=== PATIENT | female | born 1955 | race Caucasian/White ===

== ENCOUNTER 2016-09-11 16:33 | Inpatient (IN) | payer OTHER ==
--- NOTE | 2016-09-11 16:41 | EDPHY ---
H & P Time Seen by Provider: 09/11/16 16:41 HPI/ROS: Portions of this note were transcribed by a electromedical equipment technician. I personally performed the history, physical exam, and medical decision-making; and confirmed the accuracy of the information in the transcribed note. CHIEF COMPLAINT: shortness of breath and headache. HISTORY OF PRESENT ILLNESS: Patient is a 60 y/o female with a history of CHF, complaining of shortness of breath and headache. History obtained from daughter and patient. Symptoms of shortness of breath and headache started on 09/09 with all day oxygen treatment. Patient was off during the day on 09/10 and then was. Levels were measured at 83-84% at rest. Did not need oxygen last night but woke up short of breath with headache and needed oxygen supplement. Associated bilateral increased leg swelling. Worse with exertion or lying flat. Patient believes she has gained roughly 20 lbs recently since discharge. Recent increase in Lasix to 80mg 3 x daily. Recently realized that Carvedilol dosage was half the dose she was initially taking. Denies nausea, vomiting, fever, rash, chest pain, syncopal episode, cough REVIEW OF SYSTEMS: Eye: no change in vision ENT: no sore throat Cardiac: no chest pain or syncope Pulmonary: no cough or SOB Abdomen: no vomiting, diarrhea, abdominal pain Musculoskeletal: no back pain Skin: increased redness and swelling to lower extremity bilaterally Neuro: headache in the morning Constitutional: no fever : no urinary symptoms A comprehensive 10 point review of systems is otherwise negative aside from elements mentioned in the history of present illness. PAST MEDICAL HISTORY: 1. Discharge summary from 08/23 for inferolateral myocardial infarct 2. hypertension 3. chronic kidney disease 4. chronic lower extremity edema 5. Diastolic dysfunction Social history: Daughter at bedside, nonsmoker General Appearance: Alert and conversant, cooperative. Hypertensive and hypoxic at 88% in triage Eyes: No scleral icterus. ENT, Mouth: Normal mucous membranes. Respiratory: Crackles ausculated in bilateral bases, abdominal retractions, Cardiovascular: Regular rate and rhythm. Gastrointestinal: Abdomen is soft and non tender. Neurological: Alert and oriented x3. Normally conversant. Face symmetric, normal movement and sensation in all extremities. Skin: Warm and dry, no rashes. bilateral 3+ pedal edema with venous status changes Musculoskeletal: No peripheral edema and no joint swelling. Psychiatric: Not agitated. Emergency Department course/MDM: Patient evaluation: Patient arrives complaining of shortness of breath and headache for the past 3 days with recent history of CHF. Plan: IV, labs, chest x-ray and consult with Dr. Elizalde, senior db2 systems programmer. 1737: X-ray reviewed and suggests congestive heart failure. I have ordered 80mg IV Lasix, Nitroglycerin drip, and 650mg PO Tylenol for Nitro-induced headache. 1746 Reevaluation: I discussed results of chest x-ray and indication of congestive heart failure with plan for Lasix, nitroglycerin. 180: Patient's troponin is elevated to 0.048. 1913: I spoke with Dr. Los Gudino with [facility] regarding the patient's evaluation in the ER and plan for admission. Smoking Status: Former smoker Constitutional: Initial Vital Signs Temperature (C) 37.2 C 09/11/16 16:35 Heart Rate 86 09/11/16 16:35 Respiratory Rate 22 H 09/11/16 16:35 Blood Pressure 202/98 H 09/11/16 16:35 O2 Sat (%) 88 L 09/11/16 16:35 O2 Delivery Mode Nasal Cannula O2 (L/minute) 4 Allergies/Adverse Reactions: amoxicillin [Amoxicillin] Allergy (Verified 07/27/13 14:54) lisinopril Allergy (Verified 08/22/16 11:37) losartan Allergy (Verified 08/22/16 11:37) Sulfa (Sulfonamide Antibiotics) Allergy (Verified 07/27/13 14:54) Home Medications: Medication Instructions Recorded Allopurinol [Allopurinol 300 MG 300 mg PO DAILY 08/22/16 (RX)] Aspirin EC [Aspirin EC 81 mg (*)] 81 mg PO DAILY 08/22/16 Carbamazepine 400 mg PO HS 08/22/16 FLUoxetine [Prozac 20 MG (*)] 20 mg PO DAILY 08/22/16 Insulin NPH Human [humULIN N 100 40 units SC DAILY@09 08/22/16 UNITS/ML (*)] Insulin NPH Human [humULIN N 100 40 units SC DAILY@18 08/22/16 UNITS/ML (*)] Insulin Regular Human [Humulin R 35 unit SC BIDMEAL 08/22/16 100 units/ml (*)] Carvedilol [Coreg (*)] 12.5 mg PO BIDMEAL #60 tab 08/25/16 amLODIPine BESYLATE [Norvasc 5 mg 5 mg PO DAILY #30 tab 08/25/16 (*)] Furosemide [Lasix 40 MG (*)] 80 mg PO TID 09/11/16 Lovastatin 40 mg PO DAILY 09/11/16 Spironolactone [Aldactone 50 MG 50 mg PO BID 09/11/16 (RX)] Medical Decision Making - Diagnostics EKG Interpretation: The 12 lead EKG was interpreted by myself. Normal sinus rhythm, rate 85. See hard copy and/or "tracemaster" electronic copy for interpretation. Imaging: X-ray:Chest x-ray was obtained. I viewed the images myself on the PACS system. My interpretation of the images is: congestive heart failure. The radiologist interpretation is pending at this time. I discussed the x-ray findings with the patient. Differential Diagnosis: Differential diagnosis considered for shortness of breath including but not limited to pulmonary infectious process, COPD, asthma, pulmonary embolus and congestive heart failure. Consult/Admit Bed Type: [facility] will admit. Critical Care Time: Critical care time spent by me, Dr. Feliz, exclusively with the care of this patient was 30 minutes, exclusive of PA or CHEMICAL PLANT WORKER time and exclusive of separate procedures. The organ system at risk was cardiovascular and I ordered IV nitroglycerin, IV Lasix 80 mg, oral acetaminophen, supplemental oxygen, discussion with hospitalist physician and senior db2 systems programmer; to stabilize the patient and prevent worsening of the patient's condition. - Data Points Laboratory Results: Laboratory Results 09/11/16 17:10 09/11/16 17:10 09/11/16 17:10 WBC 8.77 10^3/uL (3.80-9.50) RBC 3.57 L 10^6/uL (4.18-5.33) Hgb 11.7 L g/dL (12.6-16.3) Hct 35.7 L % (38.0-47.0) MCV 100.0 H fL (81.5-99.8) MCH 32.8 pg (27.9-34.1) MCHC 32.8 g/dL (32.4-36.7) RDW 13.7 % (11.5-15.2) Plt Count 218 10^3/uL (150-400) MPV 9.4 fL (8.7-11.7) Neut % (Auto) 81.8 H % (39.3-74.2) Lymph % (Auto) 8.0 L % (15.0-45.0) Love % (Auto) 8.7 % (4.5-13.0) Eos % (Auto) 0.6 % (0.6-7.6) Baso % (Auto) 0.2 L % (0.3-1.7) Nucleat RBC Rel Count 0.0 % (0.0-0.2) Absolute Neuts (auto) 7.18 H 10^3/uL (1.70-6.50) Absolute Lymphs (auto) 0.70 L 10^3/uL (1.00-3.00) Absolute Monos (auto) 0.76 10^3/uL (0.30-0.80) Absolute Eos (auto) 0.05 10^3/uL (0.03-0.40) Absolute Basos (auto) 0.02 10^3/uL (0.02-0.10) Absolute Nucleated RBC 0.00 10^3/uL (0-0.01) Immature Gran % 0.7 % (0.0-1.1) Immature Gran # 0.06 10^3/uL (0.00-0.10) Sodium 140 mEq/L (134-144) Potassium 3.7 mEq/L (3.5-5.2) Chloride 98 mEq/L (97-110) Carbon Dioxide 30 mEq/l (22-31) Anion Gap 12 mEq/L (8-16) BUN 42 H mg/dL (7-23) Creatinine 1.5 H mg/dL (0.6-1.0) Estimated GFR 35 Glucose 158 H mg/dL (70-100) Calcium 9.7 mg/dL (8.5-10.4) Troponin I 0.048 H ng/mL (0-0.034) NT-Pro-B Natriuret Pep 6280 H pg/mL (0-125) Medications Given: Discontinued Medications Acetaminophen (Tylenol) 650 mg PO EDNOW ONE Stop: 09/11/16 17:41 Last Admin: 09/11/16 18:05 Dose: 650 mg Furosemide (Lasix Injection) 80 mg IVP EDNOW ONE Stop: 09/11/16 17:40 Last Admin: 09/11/16 18:05 Dose: 80 mg Nitroglycerin/Dextrose (Nitroglycerin 200 Mcg/Ml (Premix)) 250 mls @ 0 mls/hr IV EDNOW ONE; Titrate PRN Reason: Protocol Stop: 09/11/16 17:41 Last Admin: 09/11/16 18:10 Dose: 250 mls Departure - Departure Disposition: [facility] Inpatient Acute Clinical Impression: Congestive heart failure (CHF) Qualifiers: Congestive heart failure type: diastolic Congestive heart failure chronicity: acute on chronic Qualifier Code: (I50.33) Acute on chronic diastolic (congestive ) heart failure Condition: Serious Report Scribed for: Rojas Feliz Report Scribed by: Sadia Whitaker Date of Report: 09/11/16 Time of Report: 16:41
--- NOTE | 2016-09-11 17:05 | CPEKG ---
Heart Rate: 85 RR Interval: 706 P-R Interval: 152 QRSD Interval: 82 QT Interval: 388 QTC Interval: 462 P [facility]: 45 QRS [facility]: 5 T Wave [facility]: 46 EKG Severity - NORMAL ECG - EKG Impression: SINUS RHYTHM Electronically Signed By: Rojas Feliz 11-Sep-2016 17:57:53
[2016-09-11 17:23] LABS: % IMMATURE GRANULYOCYTES 0.7 % (0.0-1.1); ABSOLUTE IMMATURE GRANULOCYTES 0.06 10^3/uL (0.00-0.10); ADD DIFF? NO; ADD MORPH? NO; ADD SCAN? NO; ATYPICAL LYMPHOCYTE FLAG 0 (0-99); FRAGMENT RBC FLAG 0 (0-99); HEMATOCRIT 35.7 % (38.0-47.0); HEMOGLOBIN 11.7 g/dL (12.6-16.3); LEFT SHIFT FLG 0 (0-99); LIPEMIA HEMOLYSIS FLAG 80 (0-99); MEAN CELL HEMOGLOBIN 32.8 pg (27.9-34.1); MEAN CELL HEMOGLOBIN CONCENTR. 32.8 g/dL (32.4-36.7); MEAN PLATELET VOLUME 9.4 fL (8.7-11.7); PLATELET CLUMPS FLAG 0 (0-99); PLATELET COUNT 218 10^3/uL (150-400); RED BLOOD CELL COUNT 3.57 10^6/uL (4.18-5.33); RED CELL DISTRIBUTION WIDTH 13.7 % (11.5-15.2)
[2016-09-11] MEDS ORDERED: FUROSEMIDE 40 MG/4 ML VIAL IVP ONE (17:39)
[2016-09-11] MEDS ORDERED: NITROGLYCERIN/DEXTROSE 250 ML IV ONE (17:40)
[2016-09-11] MEDS ORDERED: ACETAMINOPHEN 325 MG TAB PO ONE (17:40)
[2016-09-11 17:44] LABS: ANION GAP 12 mEq/L (8-16); CALCIUM 9.7 mg/dL (8.5-10.4); CARBON DIOXIDE 30 mEq/l (22-31); CHLORIDE 98 mEq/L (97-110); CREATININE 1.5 mg/dL (0.6-1.0); GLOMERULAR FILTRATION RATE 35; GLUCOSE 158 mg/dL (70-100); POTASSIUM 3.7 mEq/L (3.5-5.2); SODIUM 140 mEq/L (134-144)
[2016-09-11 17:57] LABS: TROPONIN I 0.048 ng/mL (0-0.034)
--- NOTE | 2016-09-11 18:01 | DX ---
AP Upright Portable and Lateral Chest, September 11, 2016 Clinical Indications: Shortness of breath. Findings: Heart size is enlarged. Pulmonary vasculature is indistinct. Small posterior pleural effus ions are noted. Bones exhibit moderate degenerative changes. Impression: Cardiomegaly with CHF. Small pleural effusions.
[2016-09-11] MEDS ORDERED: ONDANSETRON 4 MG/2 ML VIAL IVP PRN (20:48)
[2016-09-11] MEDS ORDERED: ALBUTEROL 3 ML DEYVIAL IH PRN (20:48)
[2016-09-11] MEDS ORDERED: oxyCODONE IR 5 MG TAB PO PRN (20:48)
[2016-09-11] MEDS ORDERED: D50W 25 GM/50 ML SYR IVP PRN (20:48)
[2016-09-11] MEDS ORDERED: ONDANSETRON DISINTEGRATING 4 MG TAB PO PRN (20:48)
[2016-09-11] MEDS ORDERED: PROMETHAZINE HCL 25 MG/ML VIAL IVP PRN (20:48)
[2016-09-11] MEDS ORDERED: CARVEDILOL 25 MG TAB PO SCH (21:00)
[2016-09-11] MEDS ORDERED: hydrALAZINE 20 MG/ML VIAL IVP PRN (21:04)
[2016-09-11] MEDS: IPRATROPIUM/ALBUTEROL 3 ML DEYVIAL IH SCH (21:30)
[2016-09-11 21:42] LABS: COLOR AMBER; LEUKOCYTE ESTERASE,URINE NEGATIVE (NEGATIVE); NITRITE,URINE NEGATIVE (NEGATIVE)
[2016-09-11] MEDS: SPIRONOLACTONE 50 MG TAB PO SCH (21:48)
[2016-09-11] MEDS: carBAMazepine 200 MG TAB PO SCH (21:48)
[2016-09-11] MEDS: CARVEDILOL 6.25 MG TAB PO SCH (21:49)
[2016-09-11 21:52] LABS: MUCUS TRACE /lpf (NONE-1+)
--- NOTE | 2016-09-11 21:56 | GHP ---
[f rep st] HISTORY AND PHYSICAL DATE OF ADMISSION: 09/11/2016 CHIEF COMPLAINT: Shortness of breath. HISTORY: A 60-year-old female who has a past medical history of coronary artery disease and diastoli c heart failure, recently discharged from this hospital on 08/25/2016, for weakness and dehydration. Patient states that some changes were made to her medications at that time including a decrease in h er Lasix dose. She did follow up with her pumper gauger on the and was increased again on her La six secondary to worsening edema. She notes that the edema continued to be worse, and she also began having some shortness of breath. She is not usually on oxygen. However, for the last couple of days, she has required it. I am not 1 00% clear where she was getting the oxygen; however, when she was off oxygen she did note that she wa s down to 83% just sitting around. She noted that her breathing was worse when she would lie flat or try to do anything in terms of exerting herself. She also notes that she thinks she has gained abou t 20 pounds since her last hospital discharge. She was discharged home on Lasix 40 daily and was discontinued on both Aldactone and hydrochlorothiaz екатерина after her last hospitalization when, previous to that, she was on 80 b.i.d. as well as Aldactone and hydrochlorothiazide. She notes that her pumper gauger did have her resume her Lasix at 80 three t imes a day as well as again back on Aldactone. Other than her shortness of breath, she does not comp maximo of chest pain. She has had no cough. She has had no fevers or chills. She has no other acute complaints. PAST MEDICAL HISTORY: 1. Diastolic heart failure. 2. Coronary artery disease with recent inferolateral infarct discovered on MPI without followup cath given her chronic kidney disease. 3. Chronic kidney disease. Baseline creatinine of 1.6. 4. Diabetes. 5. Hypertension. 6. Hyperlipidemia. 7. GEM. 8. Morbid obesity. 9. Depression. 10. Gout. PAST SURGICAL HISTORY: Tonsillectomy. FAMILY HISTORY: No known coronary artery disease. 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 She works at [employer]. She d rinks alcohol rarely and quit tobacco in her 20s. REVIEW OF SYSTEMS: 10-point review of systems obtained, negative except as per HPI. PHYSICAL EXAMINATION: BP 130/58, heart rate 77, respiratory rate 20, O2 saturation 97% on 2 L. Afeb rile. GENERAL APPEARANCE: This is an obese, female. She is awake and alert. She is in n o acute distress. EYES: Anicteric. HEENT: Oropharynx clear. CARDIOVASCULAR: RRR, distant second louis to body habitus. PULMONARY: Clear to auscultation with bibasilar rhonchi, somewhat increased wo rk of breathing when lying flat. ABDOMEN: Obese soft, nontender. EXTREMITIES: 2 to 3+ pitting alex ma with venous stasis cellulitic changes or venous stasis dermatitis like changes with hyperpigmentat ion and skin thickening. NEURO/PSYCH: Oriented, appropriate, pleasant. CLINICAL DATA: Chest x-ray personally reviewed and interpreted as notable for bilateral pleural effu sions, cardiomegaly and pulmonary edema. EKG personally reviewed and interpreted showing sinus rhythm. ASSESSMENT AND PLAN: This is a 60-year-old female with past medical history of diastolic heart failu re as well as coronary artery disease who presents with acute decompensated diastolic heart failure. 1. Acute decompensated diastolic heart failure. Suspect this is related to having drastic decrease in her diuretic dose after presenting dehydrated earlier this month. She has had worsening lower ext remity edema as well as increased shortness of breath with a 20-pound weight gain over the last 2 wee ks. She had been started on a higher dose of Lasix by her pumper gauger but seems as if it was too la te as she is already quite volume overloaded. She will be admitted for IV Lasix. She has been given one dose of 80 mg IV push in the ER. This will be continued b.i.d. with strict I's and O's and a go al of negative 1 to 2 L per day. Cardiology has been consulted. Will hold off an echocardiogram sin ce that was performed a couple of weeks ago. At that time, she had a preserved ejection fraction of 66% but diastolic dysfunction. Otherwise, no significant valvular disease. 2. Acute hypoxic respiratory failure. Patient presenting at 88% on room air. She is normally on no oxygen. She was in mild respiratory distress. Treatment is as per above. I did not suspect concur rent pneumonia. 3. Chronic kidney disease. Creatinine is slightly better than her baseline which is close to 1.6. Again, suspect she is slightly on the dipper and drier side. I do believe that she will do better from a cardia c/pulmonary standpoint with a slightly higher creatinine. 4. Elevated troponin. This was similarly elevated on her last hospitalization in the 0.05 range. A t last hospitalization, her troponins were flat. Will continue to trend. Invasive evaluation was de ferred given her chronic kidney disease and likely can be deferred on this occasion as well. 5. Type 2 diabetes. Her glucoses have been a little bit on the low end at times when she has not be en eating or drinking so well. She was 158 on arrival. Will continue her home medications as well a s sliding scale insulin. 6. Hypertension. Blood pressure originally on arrival fairly high at 202. Suspect this is somewhat volume related. Will continue her home medications along with p.r.n. hydralazine for a systolic gre ater than 170. 7. Coronary artery disease, again with recent abnormal nuclear stress test suggestive of inferolater al infarct but no angiogram performed given her chronic kidney disease. Will monitor her on telemetr y and trend troponins as per above. 8. Morbid obesity. Recommending lifestyle modification. 9. Disposition: Inpatient status. Expect she will need greater than 48 hour stay for evaluation an d management of above. Patient is new to my care. Old records reviewed and summarized as per HPI and past medical history. Care plan reviewed with ER physician, including plans for IV Lasix. Further history obtained from jay encinas's daughter present at bedside. /[id number]/MODL
[2016-09-11] MEDS: ACETAMINOPHEN 325 MG TAB PO PRN (22:00)
[2016-09-12 04:46] LABS: % IMMATURE GRANULYOCYTES 0.6 % (0.0-1.1); ABSOLUTE IMMATURE GRANULOCYTES 0.04 10^3/uL (0.00-0.10); ADD DIFF? NO; ADD MORPH? NO; ADD SCAN? NO; ATYPICAL LYMPHOCYTE FLAG 0 (0-99); FRAGMENT RBC FLAG 0 (0-99); HEMATOCRIT 28.6 % (38.0-47.0); HEMOGLOBIN 8.9 g/dL (12.6-16.3); LEFT SHIFT FLG 10 (0-99); LIPEMIA HEMOLYSIS FLAG 80 (0-99); MEAN CELL HEMOGLOBIN 31.9 pg (27.9-34.1); MEAN CELL HEMOGLOBIN CONCENTR. 31.1 g/dL (32.4-36.7); MEAN CELL VOLUME 102.5 fL (81.5-99.8); MEAN PLATELET VOLUME 9.8 fL (8.7-11.7); PLATELET CLUMPS FLAG 0 (0-99); PLATELET COUNT 201 10^3/uL (150-400); RED BLOOD CELL COUNT 2.79 10^6/uL (4.18-5.33); RED CELL DISTRIBUTION WIDTH 13.6 % (11.5-15.2)
[2016-09-12] MEDS: IPRATROPIUM/ALBUTEROL 3 ML DEYVIAL IH SCH ×4 (05:04→20:19)
[2016-09-12 05:11] LABS: ANION GAP 8 mEq/L (8-16); CALCIUM 9.1 mg/dL (8.5-10.4); CARBON DIOXIDE 30 mEq/l (22-31); CHLORIDE 101 mEq/L (97-110); CREATININE 1.5 mg/dL (0.6-1.0); GLOMERULAR FILTRATION RATE 35; GLUCOSE 181 mg/dL (70-100); MAGNESIUM 1.7 mg/dL (1.6-2.3); POTASSIUM 3.6 mEq/L (3.5-5.2); SODIUM 139 mEq/L (134-144)
[2016-09-12] MEDS: ACETAMINOPHEN 325 MG TAB PO PRN ×2 (07:51→18:06)
[2016-09-12] MEDS: CARVEDILOL 6.25 MG TAB PO SCH ×2 (07:52→17:52)
[2016-09-12] MEDS: FUROSEMIDE 100 MG/10 ML VIAL IVP SCH ×2 (07:58→14:14)
[2016-09-12] MEDS ORDERED: INSULIN REGULAR HUMAN 100 UNIT/ML SC SCH (08:00)
[2016-09-12] MEDS: INSULIN NPH HUMAN 100 UNITS/ML SYRINGE SC SCH ×2 (08:58→17:54)
[2016-09-12] MEDS ORDERED: NON-FORMULARY NEW DRUG (Lovastatin [Lovastatin] 40 MG) PO SCH (09:00)
[2016-09-12] MEDS: amLODIPine BESYLATE 5 MG TAB PO SCH (09:00)
[2016-09-12] MEDS: ALLOPURINOL 300 MG TAB PO SCH (09:01)
[2016-09-12] MEDS: SPIRONOLACTONE 50 MG TAB PO SCH ×2 (09:01→20:57)
[2016-09-12] MEDS: FLUoxetine 20 MG CAP PO SCH (09:01)
[2016-09-12] MEDS: ASPIRIN EC 81 MG TAB PO SCH (09:01)
[2016-09-12] MEDS: PRAVASTATIN SODIUM 40 MG TAB PO SCH (09:01)
--- NOTE | 2016-09-12 09:09 | CPEKG ---
Heart Rate: 66 RR Interval: 909 P-R Interval: 164 QRSD Interval: 78 QT Interval: 416 QTC Interval: 436 P Orcas: 25 QRS [place]cas: 8 T Wave [place]: 33 EKG Severity - BORDERLINE ECG - EKG Impression: SINUS RHYTHM EKG Impression: CONSIDER ANTERIOR INFARCT Preliminary Awaiting MD Review
[2016-09-12] MEDS: INSULIN LISPRO 100 UNIT/ML SC SCH ×3 (09:36→18:07)
[2016-09-12] MEDS: INSULIN REGULAR HUMAN 100 UNIT/ML SC SCH ×2 (09:37→18:07)
[2016-09-12] MEDS: ENOXAPARIN 30 MG/0.3 ML SYR SC SCH (09:39)
--- NOTE | 2016-09-12 14:14 | HOSPPROG ---
Hospitalist Progress Note Assessment/Plan: 60-year-old female with known chronic kidney disease who was admitted with acute shortness of breath and found to be in acute diastolic congestive heart failure with significant peripheral edema. A recent echo done 2 weeks WHEEL ROLLER showed preserved left ventricular function and so an echo was not repeated. Today she feels improved. VIVIAN was negative by 1100 cc in her weight has decreased approximately 1 kg. -acute decompensated congestive heart failure. Improving and will continue diuresis. Cardiology note appreciated -coronary artery disease with mildly elevated troponin and elevated BNP. No signs of active ischemia. The troponin elevation is likely secondary to strain. \ -chronic kidney disease with a baseline creatinine of 1.6. Creatinine is remaining within normal for her. -diabetes mellitus currently TURP covered with SSI -hypertension with mild elevation. Will continue to watch without additional medications as we are including significant diuresis. -chronic diagnoses: GEM, a hyperlipidemia, obesity Plan: Continue diuresis with the addition of metolazone watch BP and P electrolytes and creatinine. Ultimately established an outpatient diuretic plan which prevents the reaccumulation of edema. The patient has gained 20 lb since her last admission. Subjective: No complaints of chest pain shortness of breath cough or fever she says she feels improved. No abdominal pain nausea or vomiting. Denies dysuria frequency Objective: Vital Signs Temp Pulse Resp BP Pulse Ox 36.8 C 72 20 155/71 H 95 09/12/16 11:39 09/12/16 11:39 09/12/16 11:39 09/12/16 11:39 09/12/16 11:39 Laboratory Results 09/12/16 03:50 09/12/16 03:50 09/11/16 09/12/16 09/13/16 05:59 05:59 05:59 Intake Total 400 Output Total 800 700 Balance -400 -700 Laboratory Tests 09/11/16 09/11/16 09/12/16 17:10 23:17 03:50 Hgb 11.7 L 8.9 L Troponin I 0.048 H 0.061 H 0.050 H NT-Pro-B Natriuret Pep 6280 H - Time Spent With Patient Time Spent with Patient: greater than 35 minutes Time Spent with Patient: Greater than 35 minutes spent on this patients care, greater than 50% of time spent counseling, educating, and coordinating care regarding the above mentioned plan. - Pending Discharge Pending Discharge Within 24 Hours: Yes Pending Discharge Date: 09/13/16 Pending Discharge Time: 11:00 - Physical Exam Constitutional: no apparent distress Eyes: PERRL Ears, Nose, Mouth, Throat: moist mucous membranes, hearing normal Cardiovascular: regular rate and rhythym, no murmur, rub, or gallop Respiratory: no respiratory distress, no rales or rhonchi, clear to auscultation Gastrointestinal: normoactive bowel sounds, soft, non-tender abdomen, other ( Obesity.) Genitourinary: no bladder fullness Skin: warm, normal color Musculoskeletal: other (3+ pitting nontender edema without signs of cellulitis bilaterally) Neurologic: AAOx3, CN II-XII Intact ICD10 Worksheet Patient Problems: Problems Problem Status Diagnosed Congestive heart failure (CHF) Acute Dehydration Acute Elevated troponin Acute Hyperglycemia due to type 2 diabetes mellitus Acute Prerenal azotemia Acute
[2016-09-12] MEDS ORDERED: METOLAZONE 5 MG TAB PO ONE (15:00)
--- NOTE | 2016-09-12 16:08 | GCON ---
[f rep st] CONSULTATION CARDIOLOGY CONSULTATION DATE OF CONSULTATION: 09/12/2016 REFERRING PHYSICIAN: Yg Morales Jr., MD REASON FOR CONSULTATION: Probable ofemd-[id number]-ttennpe diastolic CHF with a component of cor pulmonale. HISTORY: Ms. Greer is a 60-year-old woman who has a history of morbid obesity, obstructive sleep apnea, hypertension, hyperlipidemia, type 2 diabetes, and chronic kidney disease. She was hospitaliz ed earlier this month with a gastrointestinal illness. At that point, she had been unable to keep fo od or fluids down. She presented with prerenal azotemia as evidenced by BUN and creatinine up to 80 and 2.0, respectively. This is in excess of her baseline creatinine of approximately 1.5 to 1.6. He r diuretics were held and she was given intravenous fluids. Her BUN and creatinine went back to her usual baseline, and she was discharged on a significantly reduced diuretic dosing schedule. She had previously been on Lasix 80 mg twice daily, hydrochlorothiazide, and spironolactone. Her spironolact one and hydrochlorothiazide were discontinued entirely, and her Lasix was reduced to 40 mg once a day . Over the past several days, she has noticed increasing shortness of breath, worsening orthopnea, a nd significantly worsening lower extremity edema. She has not had any chest discomfort suggestive of ischemia. During her previous hospital stay, she had an echocardiogram performed, which demonstrate d normal left ventricular systolic function with no regional wall motion abnormalities. She had norm al-appearing valvular structures with trace MR. Pulmonary artery systolic pressure could not be cinda mated from that study. Diastolic dysfunction was noted. Because of mildly elevated troponin levels, she had a pharmacologic nuclear stress test which suggested a fixed inferior wall defect. She has n o clinical history of angina or documented CAD. She has not been seen by Cardiology in the past, and had not had cardiac testing prior to her recent studies. PAST MEDICAL HISTORY: As noted above, she has a history of chronic kidney disease. She is followed by Dr. Peña from Nephrology. Other issues include type 2 diabetes, hypertension, hyperlipidemia, mo rbid obesity, obstructive sleep apnea, depression, and gout. PAST SURGICAL HISTORY: Notable for tonsillectomy. MEDICATIONS: Please refer to the electronic chart for a complete list of her medications. Relevant cardiac medications include amlodipine 5 mg daily, aspirin 81 mg daily, carvedilol 12.5 mg twice cody y, and lovastatin 40 mg daily. ALLERGIES: Allergies or adverse reactions are listed for amoxicillin, lisinopril, losartan, and sulf a. SOCIAL HISTORY: She is single. She resides in her home with a disabled son, her daughter, and her m other. She is a nonsmoker. She does not consume significant amounts of alcohol. REVIEW OF SYSTEMS: Notable for worsening shortness of breath, orthopnea, and lower extremity edema. Otherwise, a 10-point review was negative. PHYSICAL EXAMINATION: VITAL SIGNS: Heart rate in the 70s, with sinus rhythm on the monitor. Blood pressure 155/71. O2 saturation 95% on 3 L of nasal cannula oxygen. Temperature 36.8 degrees Celsius . GENERAL: This is a morbidly obese, middle-aged woman, in no acute distress. She is alert and delia ented x3 and provides a good clinical history. HEAD AND NECK: No scleral icterus. Mucous membranes moist. Carotid pulses 2+ without bruits. Jugular venous pressure difficult to assess secondary to body habitus. CHEST: Lung leonard clear, without wheezes or rales bilaterally. CARDIAC: Regular ra te and rhythm, with normal S1 and S2. No murmur or gallop appreciated. ABDOMEN: Obese, soft, nonte nder, with normal bowel sounds. EXTREMITIES: There is 3 to 4 plus bilateral lower extremity edema w ith some erythematous changes. Pedal pulses are 1 to 2+. ECG: Her ECG demonstrates normal sinus rhythm. There are no Q-waves or conduction system disturbanc es. There were no ST-T wave changes suggestive of ischemia. LABORATORY STUDIES: Sodium 139, potassium 3.6, BUN and creatinine 45 and 1.5. Troponin levels have been 0.048, 0.061, and 0.050. BNP is elevated at 6,280, which is increased compared to a level of 90 5 on August 24. CBC demonstrates a white blood cell count of 7.15, with hemoglobin and hematocri t of 8.9 and 28.6. IMPRESSION: This is a 60-year-old woman with multiple medical problems as outlined above. She was r ecently discharged on a markedly reduced schedule of diuretics after having presented with prerenal a zotemia related to dehydration from a gastrointestinal illness. She now manifests evidence of signif icant fluid retention. Her weight is up approximately 20 pounds from her baseline, and her lower ext remity edema is significantly worse than what she usually demonstrates. A recent echocardiogram demo nstrated normal left ventricular systolic function and no valvular heart disease. Her clinical pictu re is consistent with a combination of diastolic CHF related to her underlying hypertension with a co ntribution of chronic cor pulmonale secondary to her obstructive sleep apnea. Her renal function is at baseline. During her previous hospital stay, a nuclear stress test suggested a fixed inferior def ect, potentially suggestive of a prior clinically silent inferior myocardial infarction. However, I suspect that this test result likely represents a false positive. Given her body habitus, it would n ot be surprising for her to demonstrate diaphragmatic attenuation on her nuclear perfusion imaging. Additionally, she did not have a corresponding inferior wall motion abnormality on echocardiography. She is not experiencing any symptoms suggestive of angina. Therefore, I do not feel that cardiac ca theterization is warranted. Additionally, this would place her kidneys at risk from contrast exposur e. RECOMMENDATIONS: Would continue her twice daily intravenous Lasix at 80 mg. She has not demonstrate d much in the way of fluid mobilization. Therefore, a single dose of metolazone will be combined wit h this afternoon's Lasix dose in an attempt to affect a more vigorous diuretic response. Would cali nue her usual antihypertensive medications and consider the addition of hydralazine. /[id number]/MODL
[2016-09-12] MEDS: carBAMazepine 200 MG TAB PO SCH (20:57)
[2016-09-13 04:40] LABS: % IMMATURE GRANULYOCYTES 0.5 % (0.0-1.1); ABSOLUTE IMMATURE GRANULOCYTES 0.03 10^3/uL (0.00-0.10); ADD DIFF? NO; ADD MORPH? NO; ADD SCAN? NO; ATYPICAL LYMPHOCYTE FLAG 0 (0-99); FRAGMENT RBC FLAG 0 (0-99); HEMATOCRIT 30.3 % (38.0-47.0); HEMOGLOBIN 9.8 g/dL (12.6-16.3); LEFT SHIFT FLG 0 (0-99); LIPEMIA HEMOLYSIS FLAG 80 (0-99); MEAN CELL HEMOGLOBIN 32.1 pg (27.9-34.1); MEAN CELL HEMOGLOBIN CONCENTR. 32.3 g/dL (32.4-36.7); MEAN CELL VOLUME 99.3 fL (81.5-99.8); MEAN PLATELET VOLUME 9.8 fL (8.7-11.7); PLATELET CLUMPS FLAG 0 (0-99); PLATELET COUNT 238 10^3/uL (150-400); RED BLOOD CELL COUNT 3.05 10^6/uL (4.18-5.33); RED CELL DISTRIBUTION WIDTH 13.6 % (11.5-15.2)
[2016-09-13 04:57] LABS: ANION GAP 11 mEq/L (8-16); CALCIUM 8.9 mg/dL (8.5-10.4); CARBON DIOXIDE 29 mEq/l (22-31); CHLORIDE 98 mEq/L (97-110); CREATININE 1.5 mg/dL (0.6-1.0); GLOMERULAR FILTRATION RATE 35; GLUCOSE 133 mg/dL (70-100); POTASSIUM 3.8 mEq/L (3.5-5.2); SODIUM 138 mEq/L (134-144)
[2016-09-13] MEDS: IPRATROPIUM/ALBUTEROL 3 ML DEYVIAL IH SCH ×4 (05:49→21:15)
[2016-09-13] MEDS: PRAVASTATIN SODIUM 40 MG TAB PO SCH (09:00)
[2016-09-13] MEDS: CARVEDILOL 6.25 MG TAB PO SCH ×2 (09:01→18:11)
[2016-09-13] MEDS: ALLOPURINOL 300 MG TAB PO SCH (09:01)
[2016-09-13] MEDS: SPIRONOLACTONE 50 MG TAB PO SCH ×2 (09:01→20:31)
[2016-09-13] MEDS: ASPIRIN EC 81 MG TAB PO SCH (09:01)
[2016-09-13] MEDS: amLODIPine BESYLATE 5 MG TAB PO SCH (09:01)
[2016-09-13] MEDS: FLUoxetine 20 MG CAP PO SCH (09:01)
[2016-09-13] MEDS: FUROSEMIDE 80 MG in D5W 50 ML IV SCH ×2 (09:03→15:12)
[2016-09-13] MEDS: ENOXAPARIN 30 MG/0.3 ML SYR SC SCH (09:07)
[2016-09-13] MEDS: INSULIN NPH HUMAN 100 UNITS/ML SYRINGE SC SCH ×2 (09:27→18:37)
[2016-09-13] MEDS: INSULIN LISPRO 100 UNIT/ML SC SCH ×4 (10:31→18:22)
[2016-09-13] MEDS: INSULIN REGULAR HUMAN 100 UNIT/ML SC SCH ×2 (11:50→18:40)
[2016-09-13] MEDS ORDERED: CANN-EASE 2 GM TUBE TP ONE (13:30)
--- NOTE | 2016-09-13 13:43 | HOSPPROG ---
Hospitalist Progress Note Assessment/Plan: 60-year-old female with known chronic kidney disease who was admitted with acute shortness of breath and found to be in acute diastolic congestive heart failure with significant peripheral edema. A recent echo done 2 weeks [facility] showed preserved left ventricular function and so an echo was not repeated. Today she again feels improved. VIVIAN last 24 hours is-1500 cc and weight is declined by 2 kg. -acute decompensated congestive heart failure. Improving and will continue diuresis. Cardiology note appreciated -pre renal azotemia: This is slowly increasing with the diuretic therapy with a normal creatinine. We will continue diuresis and watch the BUN and creatinine. -coronary artery disease with mildly elevated troponin and elevated BNP. No signs of active ischemia. The troponin elevation is likely secondary to strain. \ -chronic kidney disease with a baseline creatinine of 1.6. Creatinine is remaining within normal for her. BUN is rising without a rise in creatinine. -diabetes mellitus currently covered with SSI -hypertension with mild elevation. This has continued to be elevated we will increase her Norvasc to 10 mg daily. -chronic diagnoses: GEM, a hyperlipidemia, obesity Plan: Continue diuresis with the addition of metolazone watch BP and P electrolytes and creatinine. Ultimately established an outpatient diuretic plan which prevents the reaccumulation of edema. The patient has gained 20 lb since her last admission. Subjective: Feeling well. Shortness of breath is decreased. She has no chest pain nausea or vomiting Objective: Vital Signs Temp Pulse Resp BP Pulse Ox 36.8 C 17 L 17 151/75 H 92 09/13/16 08:00 09/13/16 12:26 09/13/16 12:26 09/13/16 11:30 09/13/16 12:26 Laboratory Results 09/13/16 03:44 09/13/16 03:44 09/12/16 09/13/16 09/14/16 05:59 05:59 05:59 Intake Total 400 550 240 Output Total 800 2100 1000 Balance -400 -1550 -760 ICD10 Worksheet Patient Problems: Problems Problem Status Diagnosed Congestive heart failure (CHF) Acute Dehydration Acute Elevated troponin Acute Hyperglycemia due to type 2 diabetes mellitus Acute Prerenal azotemia Acute
--- NOTE | 2016-09-13 14:11 | PDCARPN ---
Cardiology Progress Note Assessment/Plan: Acute on Chronic Diastolic CHF/Chronic Cor Pulmonale-patient feels improved with respect to her breathing today. Next negative fluid balance of over 1500 cc in response to a combination of Lasix and metolazone yesterday afternoon. Still significantly up from her baseline weight. * Repeat metolazone at a reduced dose with her afternoon Lasix today. * Has an appointment with our heart failure specialist, Dr. Elizalde, at [facility] on 09/23/16 at 9:45 a.m. Hypertension-still suboptimally controlled. * Hydralazine 25 mg TID added. Chronic Kidney Disease- creatinine stable today despite enhanced diuresis yesterday * Continue to monitor closely. Abnormal Nuclear Stress Tests- (during [facility] stay); suspect a false positive. Not experiencing angina. * No further testing at this time. Obstructive Sleep Apnea- reportedly diagnosed approximately 10 years ago. However, she has never addressed it therapeutically. * Suggested that she make addressing her sleep apnea a New Year's resolution for 2017. 09/13/16 13:45 Subjective: Breathing seems better to her today. No significant change in edema. Objective: Vital Signs (8 Hrs) Temp Pulse Resp BP Pulse Ox 09/13/16 12:26 17 L 17 92 09/13/16 11:30 151/75 H 09/13/16 09:01 78 179/88 H 09/13/16 08:00 36.8 C 78 16 179/88 H 95 09/13/16 05:49 78 20 94 Intake/Output (24 Hrs) 09/12/16 09/13/16 09/14/16 05:59 05:59 05:59 Intake Total 400 550 240 Output Total 800 2100 1000 Balance -400 -1550 -760 Intake: Oral (ml) 400 550 240 Output: Urine (ml) 800 2100 1000 Toilet 800 2100 1000 Other: Weight 109 kg 108.5 kg Intake Quantity Yes Sufficient Number of Voids Toilet 2 Number of Stools Toilet 1 Result Diagrams: 09/13/16 03:44 09/13/16 03:44 Cardiac Labs: Cardiac Lab Results (72 Hrs) 09/12/16 09/11/16 03:50 23:17 Troponin I 0.050 H 0.061 H - Physical Exam Constitutional: no apparent distress, obese Eyes: anicteric sclera Ears, Nose, Mouth, Throat: moist mucous membranes Cardiovascular: regular rate and rhythm, no murmurs Respiratory: clear to auscultate bilat Gastrointestinal: normoactive bowel sounds, no tenderness, no masses Skin: other (3 to 4+ edema) Neurologic: AAOx3 Psychiatric: interactive, not anxious ICD10 Worksheet Patient Problems: Problems Problem Status Diagnosed Congestive heart failure (CHF) Acute Dehydration Acute Elevated troponin Acute Hyperglycemia due to type 2 diabetes mellitus Acute Prerenal azotemia Acute
[2016-09-13] MEDS ORDERED: METOLAZONE 5 MG TAB PO ONE ×2 (15:00)
[2016-09-13] MEDS ORDERED: hydrALAZINE 10 MG TAB PO SCH (16:00)
[2016-09-13] MEDS: hydrALAZINE 25 MG TAB PO SCH ×2 (17:00→22:41)
[2016-09-13] MEDS ORDERED: BISACODYL 10 MG SUPP PR PRN (17:11)
[2016-09-13] MEDS ORDERED: MAGNESIUM HYDROXIDE 30 ML UDCUP PO PRN (17:11)
[2016-09-13] MEDS ORDERED: LACTULOSE 20 GM/30 ML UDCUP PO PRN (17:11)
[2016-09-13] MEDS ORDERED: POLYETHYLENE GLYCOL 3350 17 GM PKT PO PRN (17:11)
[2016-09-13] MEDS: SENNOSIDES/DOCUSATE SODIUM TAB PO SCH (20:30)
[2016-09-13] MEDS: carBAMazepine 200 MG TAB PO SCH (20:31)
[2016-09-14 04:46] LABS: % IMMATURE GRANULYOCYTES 1.1 % (0.0-1.1); ABSOLUTE IMMATURE GRANULOCYTES 0.06 10^3/uL (0.00-0.10); ADD DIFF? NO; ADD MORPH? NO; ADD SCAN? NO; ATYPICAL LYMPHOCYTE FLAG 10 (0-99); FRAGMENT RBC FLAG 0 (0-99); HEMATOCRIT 31.2 % (38.0-47.0); HEMOGLOBIN 10.2 g/dL (12.6-16.3); LEFT SHIFT FLG 10 (0-99); LIPEMIA HEMOLYSIS FLAG 80 (0-99); MEAN CELL HEMOGLOBIN 32.1 pg (27.9-34.1); MEAN CELL HEMOGLOBIN CONCENTR. 32.7 g/dL (32.4-36.7); MEAN CELL VOLUME 98.1 fL (81.5-99.8); MEAN PLATELET VOLUME 9.6 fL (8.7-11.7); PLATELET CLUMPS FLAG 10 (0-99); PLATELET COUNT 267 10^3/uL (150-400); RED BLOOD CELL COUNT 3.18 10^6/uL (4.18-5.33); RED CELL DISTRIBUTION WIDTH 13.3 % (11.5-15.2)
[2016-09-14 05:09] LABS: ANION GAP 11 mEq/L (8-16); CALCIUM 9.1 mg/dL (8.5-10.4); CARBON DIOXIDE 32 mEq/l (22-31); CHLORIDE 95 mEq/L (97-110); CREATININE 1.4 mg/dL (0.6-1.0); GLOMERULAR FILTRATION RATE 38; GLUCOSE 80 mg/dL (70-100); POTASSIUM 3.9 mEq/L (3.5-5.2); SODIUM 138 mEq/L (134-144)
[2016-09-14] MEDS: IPRATROPIUM/ALBUTEROL 3 ML DEYVIAL IH SCH ×4 (05:29→20:56)
[2016-09-14] MEDS: ENOXAPARIN 30 MG/0.3 ML SYR SC SCH (09:35)
[2016-09-14] MEDS: hydrALAZINE 25 MG TAB PO SCH ×3 (09:35→20:51)
[2016-09-14] MEDS: SPIRONOLACTONE 50 MG TAB PO SCH ×2 (09:36→20:52)
[2016-09-14] MEDS: ASPIRIN EC 81 MG TAB PO SCH (09:36)
[2016-09-14] MEDS: PRAVASTATIN SODIUM 40 MG TAB PO SCH (09:36)
[2016-09-14] MEDS: FLUoxetine 20 MG CAP PO SCH (09:36)
[2016-09-14] MEDS: amLODIPine BESYLATE 5 MG TAB PO SCH (09:36)
[2016-09-14] MEDS: SENNOSIDES/DOCUSATE SODIUM TAB PO SCH ×2 (09:37→20:52)
[2016-09-14] MEDS: CARVEDILOL 6.25 MG TAB PO SCH ×2 (09:37→23:52)
[2016-09-14] MEDS: ALLOPURINOL 300 MG TAB PO SCH (09:37)
[2016-09-14] MEDS: INSULIN NPH HUMAN 100 UNITS/ML SYRINGE SC SCH ×2 (09:40→18:20)
[2016-09-14] MEDS: FUROSEMIDE 80 MG in D5W 50 ML IV SCH ×2 (09:40→14:51)
[2016-09-14] MEDS: INSULIN LISPRO 100 UNIT/ML SC SCH ×3 (09:43→18:21)
[2016-09-14] MEDS: INSULIN REGULAR HUMAN 100 UNIT/ML SC SCH ×2 (09:47→18:19)
--- NOTE | 2016-09-14 10:58 | PDCARPN ---
Cardiology Progress Note Assessment/Plan: Assessment /plan: 60-year-old female with hypertension, morbid obesity, diabetes, chronic renal insufficiency. She was admitted on September 11 with heart failure preserved ejection fraction. This is likely related to holding her diuretics for previous GI illness earlier this month.She has diuresed well with the combination of Lasix and metolazone. Her weight is down 3 kg since admission. Troponins were minimally elevated but flat compared to prior admission. 1. Heart failure with preserved ejection fraction: This is likely related to untreated sleep apnea, hypertension, obesity. There is a question whether she may have coronary disease based on a fixed inferior defect on nuclear stress testing. She has no angina. EKG is normal. Troponins are not significantly elevated. Would continue blood pressure management and diuresis with Lasix. She will require intensive outpatient therapy as well. 2. hypertension: This is a significant contributor to her heart failure. Amlodipine was increased today. May need increase in her Coreg and/or her hydralazine. Weight loss would, of course, be beneficial 3. chronic renal insufficiency: She is about at her baseline. 4. hypoxic respiratory failure: She currently does not appear to have pulmonary vascular congestion. This is likely related to obesity hypoventilation syndrome. He 5. Diabetes: She is on insulin. Per Internal Medicine 6. sleep apnea: This is currently untreated. She needs outpatient sleep study. I explained the connection between sleep apnea and heart failure. 09/14/16 11:48 Subjective: Andreina reports no chest pain. Her breathing is better. Reviewed/Discussed With: hospitalist Objective: Vital Signs (8 Hrs) Temp Pulse Resp BP Pulse Ox 09/14/16 07:18 36.6 C 77 14 175/89 H 94 09/14/16 05:31 78 16 91 L 09/14/16 02:56 36.8 C 78 17 164/87 H 91 L Intake/Output (24 Hrs) 09/13/16 09/14/16 09/15/16 05:59 05:59 05:59 Intake Total 550 1625 Output Total 2100 4500 Balance -1550 -2875 Intake: Oral (ml) 550 1455 IV Intake (ml) 40 IV Infused (ml) 130 Furosemide 80 mg In D5w 130 50 ml @ 100 mls/hr IV [facility] Rx#: [id number] Output: Urine (ml) 2100 4500 Toilet 2100 4500 Other: Weight 108.5 kg 107.5 kg Intake Quantity Yes Yes Sufficient Number of Voids Toilet 2 3 Number of Stools Toilet 1 1 no acute distress. Sitting up in chair JVP less than 10 regular rate and rhythm without murmur or gallop Lungs clear to auscultation without wheeze or rales Extremities are warm. Stigmata of chronic venous stasis. 1 to 2+ pitting edema to the midshin bilaterally Result Diagrams: 09/14/16 03:46 09/14/16 03:46 Cardiac Labs: Cardiac Lab Results (72 Hrs) 09/12/16 09/11/16 03:50 23:17 Troponin I 0.050 H 0.061 H EKG: EKGs reviewed. Sinus rhythm without ischemic changes Telemetry: Sinus rhythm with occasional PVCs ICD10 Worksheet Patient Problems: Problems Problem Status Diagnosed Congestive heart failure (CHF) Acute Dehydration Acute Elevated troponin Acute Hyperglycemia due to type 2 diabetes mellitus Acute Prerenal azotemia Acute
--- NOTE | 2016-09-14 15:37 | HOSPPROG ---
Hospitalist Progress Note Assessment/Plan: 60-year-old female with known chronic kidney disease who was admitted with acute shortness of breath and found to be in acute diastolic congestive heart failure with significant peripheral edema. A recent echo done 2 weeks [employer] [facility] showed preserved left ventricular function and so an echo was not repeated. Today she again feels improved. VIVIAN last 24 hours is-2900 cc and weight is declined by 4 kg. -acute decompensated congestive heart failure, diastolic dysfunction with preserved systolic function. The CHF decompensation is secondary to hypertension obesity and chronic renal failure. Improving and will continue diuresis. Cardiology note appreciated -pre renal azotemia: This is slowly increasing with the diuretic therapy with a normal creatinine. We will continue diuresis and watch the BUN and creatinine. She is near or at her baseline creatinine. -coronary artery disease with mildly elevated troponin and elevated BNP. No signs of active ischemia. The troponin elevation is likely secondary to strain ; there was no signs of acute ischemia. \ -chronic kidney disease with a baseline creatinine of 1.4-1.6. Creatinine today is 1.4 in its believe she is at her baseline. Her renal function is tolerating the diuresis and so we will continue diuresis but decrease the Lasix slightly as her BUN has risen -diabetes mellitus currently covered with SSI -hypertension with mild elevation. Norvasc was increased to 10 mg per day today -OSAS: This is a clinical diagnosis and she will need a formal sleep study as an outpatient. Clinically she has limitation of inspiration and chronic hypoxia currently. -chronic diagnoses: GEM, a hyperlipidemia, obesity Plan: Continue with diuresis with a decreased dose of Lasix; increase amlodipine to 10 mg per day today for control of blood pressure; watch creatinine and BUN; continue glucose coverage with SSI; arrange for a formal sleep study as an outpatient through pulmonary Disposition: As she nears of stable baseline and stable diuresis on p. O. medication she can be discharged to home. I expect disposition in 1-2 days. She will need home O2 and referral for a formal sleep study Subjective: Reports she feels improved as her breathing is better and less feelings of heaviness in her chest. No nausea vomiting fever or chills. Objective: Vital Signs Temp Pulse Resp BP Pulse Ox 36.6 C 88 14 165/75 H 90 L 09/14/16 11:30 09/14/16 11:36 09/14/16 11:36 09/14/16 11:30 09/14/16 14:10 Laboratory Results 09/14/16 03:46 09/14/16 03:46 09/13/16 09/14/16 09/15/16 05:59 05:59 05:59 Intake Total 550 1625 Output Total 2100 4500 Balance -9931 -4962 - Time Spent With Patient Time Spent with Patient: greater than 35 minutes Time Spent with Patient: Greater than 35 minutes spent on this patients care, greater than 50% of time spent counseling, educating, and coordinating care regarding the above mentioned plan. - Physical Exam Constitutional: no apparent distress Eyes: PERRL Ears, Nose, Mouth, Throat: moist mucous membranes, hearing normal Cardiovascular: regular rate and rhythym, systolic murmur Respiratory: no respiratory distress, no rales or rhonchi, clear to auscultation Gastrointestinal: normoactive bowel sounds, soft, non-tender abdomen, no palpable masses, other (Obesity noted) Genitourinary: no bladder fullness Skin: warm Musculoskeletal: full muscle strength, other (3+ soft pitting edema is noted bilaterally) Neurologic: AAOx3, CN II-XII Intact ICD10 Worksheet Patient Problems: Problems Problem Status Diagnosed Congestive heart failure (CHF) Acute Dehydration Acute Elevated troponin Acute Hyperglycemia due to type 2 diabetes mellitus Acute Prerenal azotemia Acute
[2016-09-14] MEDS: carBAMazepine 200 MG TAB PO SCH (20:52)
[2016-09-15 04:08] LABS: % IMMATURE GRANULYOCYTES 1.4 % (0.0-1.1); ABSOLUTE IMMATURE GRANULOCYTES 0.08 10^3/uL (0.00-0.10); ADD DIFF? NO; ADD MORPH? NO; ADD SCAN? NO; ATYPICAL LYMPHOCYTE FLAG 0 (0-99); FRAGMENT RBC FLAG 0 (0-99); HEMATOCRIT 32.6 % (38.0-47.0); HEMOGLOBIN 10.7 g/dL (12.6-16.3); LEFT SHIFT FLG 10 (0-99); LIPEMIA HEMOLYSIS FLAG 80 (0-99); MEAN CELL HEMOGLOBIN CONCENTR. 32.8 g/dL (32.4-36.7); MEAN CELL VOLUME 97.6 fL (81.5-99.8); MEAN PLATELET VOLUME 9.4 fL (8.7-11.7); PLATELET CLUMPS FLAG 0 (0-99); PLATELET COUNT 307 10^3/uL (150-400); RED BLOOD CELL COUNT 3.34 10^6/uL (4.18-5.33); RED CELL DISTRIBUTION WIDTH 13.5 % (11.5-15.2)
[2016-09-15 04:16] LABS: ANION GAP 13 mEq/L (8-16); CALCIUM 9.2 mg/dL (8.5-10.4); CARBON DIOXIDE 31 mEq/l (22-31); CHLORIDE 95 mEq/L (97-110); CREATININE 1.4 mg/dL (0.6-1.0); GLOMERULAR FILTRATION RATE 38; GLUCOSE 133 mg/dL (70-100); POTASSIUM 3.8 mEq/L (3.5-5.2); SODIUM 139 mEq/L (134-144)
[2016-09-15] MEDS: IPRATROPIUM/ALBUTEROL 3 ML DEYVIAL IH SCH ×4 (05:00→21:06)
[2016-09-15] MEDS: SPIRONOLACTONE 50 MG TAB PO SCH ×2 (09:01→20:49)
[2016-09-15] MEDS: SENNOSIDES/DOCUSATE SODIUM TAB PO SCH ×2 (09:01→20:51)
[2016-09-15] MEDS: FUROSEMIDE 80 MG in D5W 50 ML IV SCH (09:01)
[2016-09-15] MEDS: amLODIPine BESYLATE 5 MG TAB PO SCH (09:02)
[2016-09-15] MEDS: ASPIRIN EC 81 MG TAB PO SCH (09:02)
[2016-09-15] MEDS: ENOXAPARIN 30 MG/0.3 ML SYR SC SCH (09:03)
[2016-09-15] MEDS: FLUoxetine 20 MG CAP PO SCH (09:03)
[2016-09-15] MEDS: PRAVASTATIN SODIUM 40 MG TAB PO SCH (09:03)
[2016-09-15] MEDS: CARVEDILOL 6.25 MG TAB PO SCH (09:03)
[2016-09-15] MEDS: hydrALAZINE 25 MG TAB PO SCH ×3 (09:03→20:49)
[2016-09-15] MEDS: ACETAMINOPHEN 325 MG TAB PO PRN (09:13)
[2016-09-15] MEDS: INSULIN LISPRO 100 UNIT/ML SC SCH ×3 (09:14→17:28)
[2016-09-15] MEDS: INSULIN REGULAR HUMAN 100 UNIT/ML SC SCH ×2 (09:14→17:34)
[2016-09-15] MEDS: INSULIN NPH HUMAN 100 UNITS/ML SYRINGE SC SCH ×2 (10:11→17:34)
[2016-09-15] MEDS ORDERED: CARVEDILOL 6.25 MG TAB PO ONE (10:21)
--- NOTE | 2016-09-15 10:47 | PDCARPN ---
Cardiology Progress Note Assessment/Plan: Assessment /plan: 60-year-old female with hypertension, morbid obesity, diabetes, chronic renal insufficiency. She was admitted on September 11 with heart failure preserved ejection fraction. This is likely related to holding her diuretics for previous GI illness earlier this month. She has diuresed well with the combination of Lasix and metolazone. Her weight is down 4.4 kg since admission. Troponins were minimally elevated but flat compared to prior admission. 1. Heart failure with preserved ejection fraction: This is likely related to untreated sleep apnea, hypertension, obesity. There is a question whether she may have coronary disease based on a fixed inferior defect on nuclear stress testing. She has no angina. EKG is normal. Troponins are not significantly elevated. Would continue blood pressure management and diuresis with Lasix. Change to oral lasix given rising BUN. Increase coreg. She will require intensive outpatient therapy as well. 2. hypertension: This is a significant contributor to her heart failure. Amlodipine was increased 09/14. Increase coreg today. Weight loss would, of course, be beneficial 3. chronic renal insufficiency: She is about at her baseline. 4. hypoxic respiratory failure: She currently does not appear to have pulmonary vascular congestion. This is likely related to obesity hypoventilation syndrome. 5. Diabetes: She is on insulin. Per Internal Medicine 6. sleep apnea: This is currently untreated. She needs outpatient sleep study. I explained the connection between sleep apnea and heart failure. Follow up with Dr. Elizalde 09/15/16 10:44 Subjective: Barbara denies CP. Breathing and edema improved. Reviewed/Discussed With: hospitalist Objective: Vital Signs (8 Hrs) Temp Pulse Resp BP Pulse Ox 09/15/16 07:16 36.3 C 79 18 159/94 H 94 09/15/16 04:00 36.6 C 80 17 169/113 H 93 Intake/Output (24 Hrs) 09/14/16 09/15/16 09/16/16 05:59 05:59 05:59 Intake Total 1625 1145 Output Total 4500 1400 Balance -2875 -255 Intake: Oral (ml) 1455 1035 IV Intake (ml) 40 IV Infused (ml) 130 110 Furosemide 80 mg In D5w 130 110 50 ml @ 100 mls/hr IV [facility] Rx#: [id number] Output: Urine (ml) 4500 1400 Toilet 4500 1400 Other: Weight 107.5 kg 105.823 kg Intake Quantity Yes Yes Sufficient Number of Voids Toilet 3 0 Number of Stools Toilet 1 2 NAD, up in chair JVP 10 RRR no m/r/g Lungs clear Improved but present 1+ pitting edema mid kitchen bilaterally Result Diagrams: 09/15/16 03:26 09/15/16 03:26 Telemetry: NSR. PVCs ICD10 Worksheet Patient Problems: Problems Problem Status Diagnosed Congestive heart failure (CHF) Acute Dehydration Acute Elevated troponin Acute Hyperglycemia due to type 2 diabetes mellitus Acute Prerenal azotemia Acute
--- NOTE | 2016-09-15 15:27 | HOSPPROG ---
Hospitalist Progress Note Assessment/Plan: 60-year-old female with known chronic kidney disease who was admitted with acute shortness of breath and found to be in acute diastolic congestive heart failure with significant peripheral edema. A recent echo done 2 weeks [facility] showed preserved left ventricular function and so an echo was not repeated. Today she again feels improved. 4.4 l neg on this admit acute decompensated congestive heart failure, diastolic dysfunction with preserved systolic function. The CHF decompensation is secondary to hypertension obesity and chronic renal failure. Improving and will continue diuresis. Cardiology note appreciated transitioned to oral diuretics pre renal azotemia: This is slowly increasing with the diuretic therapy with a normal creatinine. We will continue diuresis and watch the BUN and creatinine. She is near or at her baseline creatinine. coronary artery disease with mildly elevated troponin and elevated BNP. No signs of active ischemia. The troponin elevation is likely secondary to strain ; there was no signs of acute ischemia. chronic kidney disease with a baseline creatinine of 1.4-1.6. Creatinine today is 1.4 in its believe she is at her baseline. Her renal function is tolerating the diuresis and so we will continue diuresis but decrease the Lasix slightly as her BUN has risen diabetes mellitus currently covered with SSI blood sugars slightly greater than goal hypertension with mild elevation. Norvasc was increased to 10 mg per day today -OSAS: This is a clinical diagnosis and she will need a formal sleep study as an outpatient. Clinically she has limitation of inspiration and chronic hypoxia currently. she had a positive sleep study 15 years ago -chronic diagnoses: GEM, a hyperlipidemia, obesity Disposition: As she nears of stable baseline and stable diuresis on p. O. medication she can be discharged to home. I expect disposition in 1-2 days. She will need home O2 and referral for a formal sleep study Subjective: on oral diuretrics Objective: Vital Signs Temp Pulse Resp BP Pulse Ox 36.4 C 78 18 124/72 H 93 09/15/16 11:27 09/15/16 11:27 09/15/16 11:27 09/15/16 11:27 09/15/16 11:27 Laboratory Results 09/15/16 03:26 09/15/16 03:26 09/14/16 09/15/16 09/16/16 05:59 05:59 05:59 Intake Total 1625 1145 355 Output Total 4500 1400 2300 Balance -2875 -255 -1945 - Physical Exam Constitutional: no apparent distress, appears nourished Eyes: PERRL, anicteric sclera Ears, Nose, Mouth, Throat: moist mucous membranes, hearing normal Cardiovascular: regular rate and rhythym, no murmur, rub, or gallop Respiratory: no respiratory distress, no rales or rhonchi Gastrointestinal: normoactive bowel sounds, soft, non-tender abdomen Genitourinary: No moore in urethra Skin: warm Musculoskeletal: full muscle strength, no muscle tenderness Neurologic: AAOx3 Psychiatric: interacting appropriately ICD10 Worksheet Patient Problems: Problems Problem Status Diagnosed Congestive heart failure (CHF) Acute Dehydration Acute Elevated troponin Acute Hyperglycemia due to type 2 diabetes mellitus Acute Prerenal azotemia Acute
[2016-09-15] MEDS: FUROSEMIDE 80 MG TAB PO SCH (15:57)
[2016-09-15] MEDS: CARVEDILOL 25 MG TAB PO SCH (17:34)
[2016-09-15] MEDS: carBAMazepine 200 MG TAB PO SCH (20:48)
[2016-09-16 04:36] LABS: HEMOGLOBIN A1C 8.5 % (4.0-6.0)
[2016-09-16 04:44] LABS: GLUCOSE 45 mg/dL (70-100)
[2016-09-16 04:49] LABS: % IMMATURE GRANULYOCYTES 1.6 % (0.0-1.1); ABSOLUTE IMMATURE GRANULOCYTES 0.09 10^3/uL (0.00-0.10); ADD DIFF? NO; ADD MORPH? NO; ADD SCAN? NO; ATYPICAL LYMPHOCYTE FLAG 0 (0-99); FRAGMENT RBC FLAG 0 (0-99); HEMATOCRIT 32.4 % (38.0-47.0); HEMOGLOBIN 10.7 g/dL (12.6-16.3); LEFT SHIFT FLG 10 (0-99); LIPEMIA HEMOLYSIS FLAG 80 (0-99); MEAN PLATELET VOLUME 9.5 fL (8.7-11.7); PLATELET CLUMPS FLAG 0 (0-99); PLATELET COUNT 304 10^3/uL (150-400); RED BLOOD CELL COUNT 3.34 10^6/uL (4.18-5.33); RED CELL DISTRIBUTION WIDTH 13.5 % (11.5-15.2)
[2016-09-16 05:03] LABS: ANION GAP 9 mEq/L (8-16); CALCIUM 9.3 mg/dL (8.5-10.4); CARBON DIOXIDE 33 mEq/l (22-31); CHLORIDE 97 mEq/L (97-110); CREATININE 1.3 mg/dL (0.6-1.0); GLOMERULAR FILTRATION RATE 42; POTASSIUM 3.9 mEq/L (3.5-5.2); SODIUM 139 mEq/L (134-144)
[2016-09-16 05:05] LABS: GLUCOSE 38 mg/dL (70-100)
[2016-09-16] MEDS: IPRATROPIUM/ALBUTEROL 3 ML DEYVIAL IH SCH ×2 (05:22→11:45)
[2016-09-16] MEDS: INSULIN LISPRO 100 UNIT/ML SC SCH ×2 (08:59→13:53)
[2016-09-16] MEDS: SPIRONOLACTONE 50 MG TAB PO SCH (09:01)
[2016-09-16] MEDS: hydrALAZINE 25 MG TAB PO SCH (09:01)
[2016-09-16] MEDS: ASPIRIN EC 81 MG TAB PO SCH (09:01)
[2016-09-16] MEDS: amLODIPine BESYLATE 5 MG TAB PO SCH (09:01)
[2016-09-16] MEDS: FUROSEMIDE 80 MG TAB PO SCH (09:01)
[2016-09-16] MEDS: CARVEDILOL 25 MG TAB PO SCH (09:01)
[2016-09-16] MEDS: ALLOPURINOL 300 MG TAB PO SCH (09:01)
[2016-09-16] MEDS: PRAVASTATIN SODIUM 40 MG TAB PO SCH (09:02)
[2016-09-16] MEDS: FLUoxetine 20 MG CAP PO SCH (09:02)
[2016-09-16] MEDS: ENOXAPARIN 30 MG/0.3 ML SYR SC SCH (09:02)
[2016-09-16] MEDS: SENNOSIDES/DOCUSATE SODIUM TAB PO SCH (09:03)
--- NOTE | 2016-09-16 09:56 | PDCARPN ---
Cardiology Progress Note Assessment/Plan: Assessment /plan: 60-year-old female with hypertension, morbid obesity, diabetes, chronic renal insufficiency. She was admitted on September 11 with heart failure With preserved ejection fraction. This is likely related to holding her diuretics for previous GI illness earlier this month. She has diuresed well with the combination of Lasix and metolazone. Her weight is down 4.4 kg since admission. Troponins were minimally elevated but flat compared to prior admission. 1. Heart failure with preserved ejection fraction: This is likely related to untreated sleep apnea, hypertension, obesity. There is a question whether she may have coronary disease based on a fixed inferior defect on nuclear stress testing. She has no angina. EKG is normal. Troponins are not significantly elevated. Would continue blood pressure management and diuresis with Lasix. antihypertensives have been up titrated this admission. She will require intensive outpatient therapy as well. 2. hypertension: This is a significant contributor to her heart failure. Amlodipine was increased 09/14. Increased coreg 09/15 Weight loss would, of course, be beneficial 3. chronic renal insufficiency: She is about at her baseline. 4. hypoxic respiratory failure: She currently does not appear to have pulmonary vascular congestion. This is likely related to obesity hypoventilation syndrome. 5. Diabetes: She is on insulin. Per Internal Medicine 6. sleep apnea: This is currently untreated. She needs outpatient sleep study. I explained the connection between sleep apnea and heart failure. Follow up with Dr. Elizalde as previously scheduled. Stable from cardiac standpoint for discharge. 09/16/16 10:00 Subjective: ryan denies chest pain. Breathing is improved. She thinks her lower extremity edema is improved as well. Objective: Vital Signs (8 Hrs) Temp Pulse Resp BP Pulse Ox 09/16/16 08:00 36.4 C 76 17 158/83 H 94 09/16/16 04:27 36.5 C 68 18 149/92 H 94 Intake/Output (24 Hrs) 09/15/16 09/16/16 09/17/16 05:59 05:59 05:59 Intake Total 1145 1655 Output Total 1400 3600 Balance -255 -9283 Intake: Oral (ml) 1035 1600 IV Infused (ml) 110 55 Furosemide 80 mg In D5w 110 55 50 ml @ 100 mls/hr IV BIDDIUR GIOVANNI Rx#: [id number] Output: Urine (ml) 1400 3600 Toilet 1400 3200 Bedside Commode 400 Other: Weight 105.823 kg 105.2 kg Intake Quantity Yes Yes Sufficient Number of Voids Toilet 0 2 Bedside Commode 1 Number of Stools Toilet 2 1 No acute distress. Sitting up in chair JVP less than 10 regular rate and rhythm without murmur or gallop Lungs clear to auscultation bilaterally without wheezes rhonchi or rale Improving mild bilateral lower extremity edema to the midshin Result Diagrams: 09/16/16 03:44 09/16/16 04:00 Telemetry: NSR with PVCs ICD10 Worksheet Patient Problems: Problems Problem Status Diagnosed Congestive heart failure (CHF) Acute Dehydration Acute Elevated troponin Acute Hyperglycemia due to type 2 diabetes mellitus Acute Prerenal azotemia Acute
[2016-09-16] MEDS: INSULIN NPH HUMAN 100 UNITS/ML SYRINGE SC SCH (10:03)
[2016-09-16] MEDS: INSULIN REGULAR HUMAN 100 UNIT/ML SC SCH (10:07)
[2016-09-16 12:11] VITALS: RESP 16
[2016-09-16 12:59] VITALS: BP 149/66; PULSE 71; TEMP 97.4; O2SAT 94
--- NOTE | 2016-09-16 13:46 | HOSPPROG ---
Hospitalist Progress Note Assessment/Plan: 60-year-old female with known chronic kidney disease who was admitted with acute shortness of breath and found to be in acute diastolic congestive heart failure with significant peripheral edema. A recent echo done 2 weeks [employer] showed preserved left ventricular function and so an echo was not repeated. Today she again feels improved. 4.4 l neg on this admit acute decompensated congestive heart failure, diastolic dysfunction with preserved systolic function. The CHF decompensation is secondary to hypertension obesity and chronic renal failure. Improving and will continue diuresis. Cardiology note appreciated transitioned to oral diuretics pre renal azotemia: This is slowly increasing with the diuretic therapy with a normal creatinine. We will continue diuresis and watch the BUN and creatinine. She is near or at her baseline creatinine. coronary artery disease with mildly elevated troponin and elevated BNP. No signs of active ischemia. The troponin elevation is likely secondary to strain ; there was no signs of acute ischemia. chronic kidney disease with a baseline creatinine of 1.4-1.6. Creatinine today is 1.4 in its believe she is at her baseline. Her renal function is tolerating the diuresis and so we will continue diuresis but decrease the Lasix slightly as her BUN has risen diabetes mellitus currently covered with SSI blood sugars slightly greater than goal hypertension with mild elevation. Norvasc was increased to 10 mg per day today -OSAS: This is a clinical diagnosis and she will need a formal sleep study as an outpatient. Clinically she has limitation of inspiration and chronic hypoxia currently. she had a positive sleep study 15 years ago -chronic diagnoses: GEM, a hyperlipidemia, obesity home today > 30 minutes Subjective: feels well. ready for dc Objective: Vital Signs Temp Pulse Resp BP Pulse Ox 36.3 C 71 16 149/66 H 94 09/16/16 12:00 09/16/16 12:00 09/16/16 12:00 09/16/16 12:00 09/16/16 12:00 Laboratory Results 09/16/16 03:44 09/16/16 04:00 09/15/16 09/16/16 09/17/16 05:59 05:59 05:59 Intake Total 1145 1655 Output Total 1400 3600 Balance -255 -1945 - Physical Exam Constitutional: no apparent distress, appears nourished Eyes: PERRL Ears, Nose, Mouth, Throat: moist mucous membranes, hearing normal Cardiovascular: regular rate and rhythym, no murmur, rub, or gallop Respiratory: no rales or rhonchi, clear to auscultation Gastrointestinal: normoactive bowel sounds, soft, non-tender abdomen Genitourinary: No moore in urethra Skin: warm, normal color Musculoskeletal: full muscle strength, no muscle tenderness Neurologic: AAOx3 ICD10 Worksheet Patient Problems: Problems Problem Status Diagnosed Congestive heart failure (CHF) Acute Dehydration Acute Elevated troponin Acute Hyperglycemia due to type 2 diabetes mellitus Acute Prerenal azotemia Acute
--- NOTE | 2016-09-16 13:47 | PDIAF ---
- Diagnosis Diagnosis: CHF Code Status: Full Code - Medication Management Discharge Medications: Medications to Continue on Transfer Aspirin EC [Aspirin EC 81 mg (*)] 81 mg PO DAILY 08/22/16 [Last Taken 09/11/16] Carbamazepine 400 mg PO HS 08/22/16 [Last Taken 09/10/16] FLUoxetine [Prozac 20 MG (*)] 20 mg PO DAILY 08/22/16 [Last Taken 09/11/16] Insulin NPH Human [humULIN N 100 UNITS/ML (*)] 40 units SC DAILY@09 08/22/16 [ Last Taken 09/11/16] Insulin NPH Human [humULIN N 100 UNITS/ML (*)] 40 units SC DAILY@18 08/22/16 [ Last Taken 09/10/16] Insulin Regular Human [Humulin R 100 units/ml (*)] 35 unit SC BIDMEAL 08/22/16 [ Last Taken 09/11/16] amLODIPine BESYLATE [Norvasc 5 mg (*)] 5 mg PO DAILY #30 tab 08/25/16 [Last Taken 09/11/16] Furosemide [Lasix 40 MG (*)] 80 mg PO TID 09/11/16 [Last Taken 09/11/16 14:30] Lovastatin 40 mg PO DAILY 09/11/16 [Last Taken 09/11/16] Spironolactone [Aldactone] 50 mg PO BID 09/11/16 [Last Taken 09/11/16 08:00] Allopurinol [Allopurinol 300 MG (RX)] 300 mg PO Q2D #0 tab 09/16/16 [Last Taken Unknown] Carvedilol [Coreg (*)] 25 mg PO BIDMEAL #60 tab 09/16/16 [Last Taken Unknown] hydrALAZINE [Apresoline] 25 mg PO TID #90 tab 09/16/16 [Last Taken Unknown] Discharge Medications: Refer to the Discharge Home Medication list for PRN reason. - Orders Oxygen: 2L - Follow Up Care Current Providers and Referrals: Ross Elizalde MD [Medical Doctor] - 09/23/16 9:45 am Kenna Telles DO [Primary Care Provider] - As per Instructions
[2016-09-16] MEDS ORDERED: CANN-EASE 2 GM TUBE TP PRN (15:23)
--- NOTE | 2016-09-16 17:19 | GDS ---
[f rep st] DISCHARGE SUMMARY DISCHARGE DIAGNOSES: 1. Acute congestive heart failure secondary to hypertension, obesity and obstructive sleep apnea. 2. Chronic kidney disease. 3. Coronary artery disease. 4. Chronic kidney disease. 5. Diabetes. 6. Likely obstructive sleep apnea. HOSPITAL COURSE: Please see admission history and physical by Dr. Fabian Rodriguez. The patient pres ented on the evening of the with worsening edema and hypoxia and she was taking some home oxygen . She was diuresed approximately 5 kg with improvement in her pulmonary status as well as improvemen t in her edema. Her renal function remained stable. Her carvedilol was up-titrated and hydralazine was added. She was discharged home with the recommendation to follow up for an outpatient sleep test . /[id number]/MODL
== END 2016-09-16 15:34 | disposition home or self-care (01) | DRG 280 ==
LOC: F2W 20:34 → OBSVTOIN 20:52
PROVIDERS: ADMIT Internal Medicine; ATTEND Internal Medicine
DX: I50.31 Acute diastolic (congestive) heart failure (principal); J96.01 Acute respiratory failure with hypoxia; I21.19 ST elevation (STEMI) myocardial infarction involving other coronary artery of inferior wall; I13.0 Hypertensive heart and chronic kidney disease with heart failure and stage 1 through stage 4 chronic kidney disease, or unspecified chronic kidney disease; I27.81 Cor pulmonale (chronic); N18.9 Chronic kidney disease, unspecified; I25.10 Atherosclerotic heart disease of native coronary artery without angina pectoris; E11.9 Type 2 diabetes mellitus without complications; E66.01 Morbid (severe) obesity due to excess calories; G47.33 Obstructive sleep apnea (adult) (pediatric); M10.9 Gout, unspecified; F32.9 Major depressive disorder, single episode, unspecified; E78.5 Hyperlipidemia, unspecified; Z79.4 Long term (current) use of insulin
CPT/HCPCS: 82947-QW; 96374; 97001-GP; 97003-GO; 97110-GP; 97116-GP; 97530-GP; 97535-GO; J1650; J1815

== ENCOUNTER → 2016-10-29 | Outpatient (CLI) | payer OTHER | LOC: BRMIMAGING 08:17 | DX: Z12.31 Encounter for screening mammogram for malignant neoplasm of breast (principal) | CPT/HCPCS: G0202 ==

== ENCOUNTER → 2017-01-16 | Outpatient (CLI) | payer OTHER | LOC: SBRMNEURO 21:30 | PROVIDERS: ATTEND Internal Medicine Sleep Medicine | DX: G47.31 Primary central sleep apnea (principal); G73.3 Myasthenic syndromes in other diseases classified elsewhere ==